=== PATIENT | male | born 1955 | race Caucasian/White ===

== ENCOUNTER → 2020-01-23 | Outpatient (CLI) | payer BC ==
--- NOTE | 2020-01-23 14:06 | REP ---
INDICATION: RT HYDROCELE, LAB 1ST. COMPARISON: None FINDINGS: The right testicle measures 3.0 x 1.9 x 2.3 cm. The left testicle measures 3.3 x 1.5 x 2.6 cm. There are multiple anechoic structures seen throughout the right testicle. These measure 2 mm in size. Within the right hemiscrotum there is a large anechoic structure.. This has the appearance of a large hydrocele. It is so large its exact origin is difficult to identify. This measures approximately 5 x 4.1 x 6.1 cm. The seen in the region of the head of the left epididymis there is a 4.0 x 2.0 x 3.1 cm sized large septated anechoic structure. The right testicular RI is 0.67 and the left is 0.45 No solid intra testicular masses are seen. IMPRESSION: 1. Large right-sided hydrocele/spermatocele as described above. 2. Left-sided suspected spermatocele as described above. <Electronically signed by Julian Bear > 01/23/20 [id number]
[2020-01-24 21:06] LABS: PSA FREE 1.22 ng/mL; PSA TOTAL 6.1 ng/mL (0.0-4.0)
== END ==
LOC: M RAD 13:05
PROVIDERS: ATTEND Urology
DX: R97.20 Elevated prostate specific antigen [PSA] (principal); N43.3 Hydrocele, unspecified

== ENCOUNTER → 2020-01-23 | Outpatient (REF) | payer BC | LOC: M SMT 13:00 | PROVIDERS: ATTEND Urology | DX: R97.20 Elevated prostate specific antigen [PSA] (principal) ==